=== PATIENT | female | born 1980 | race Caucasian/White ===

== ENCOUNTER 2019-11-01 19:41 | Inpatient (IN) | payer OTHER ==
[~2019-11-01] VITALS: Ht 157.5 cm; Wt 66.2 kg
[2019-11-01 19:54] VITALS: BP_SYST 157
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
--- NOTE | 2019-11-01 20:10 | NUR ---
Dr. Cabral at bedside to evaluate pt. When asked what happened to her chin, pt states "I don't want to talk about it."
--- NOTE | 2019-11-01 20:45 | NUR ---
# 20 gauge angiocath placed to RAC. Use of asceptic technique. Opsite placed over site. Blood return noted. Blood for lab drawn from site. Flushed with 10 cc of normal saline. No evidence of infiltration noted. Patient tolerated well.
--- NOTE | 2019-11-01 20:50 | NUR ---
Pt to X-ray via W/C in stable condition.
--- NOTE | 2019-11-01 20:56 | NUR ---
Pt returns from X-ray, no needs verbalized at this time.
--- NOTE | 2019-11-01 20:59 | NUR ---
Dr. Cabral at bedside.
[2019-11-01 21:00] LABS: BASOPHILS # (AUTO) 0.1 K/uL (0.0-0.2); BASOPHILS % (AUTO) 0.7 % (0.0-2.0); EOSINOPHILS # (AUTO) 0.1 K/uL (0.0-0.4); EOSINOPHILS % (AUTO) 1.1 % (0.0-4.0); HEMATOCRIT 40.8 % (36-48); HEMOGLOBIN 13.1 g/dL (12.0-16.0); LYMPHOCYTES % (AUTO) 21.8 % (20.5-51.5); MEAN CORPUSCULAR HEMOGLOBIN 31 pg (27-31); MEAN CORPUSCULAR HGB CONC 32 % (32-36); MEAN CORPUSCULAR VOLUME 95 fL (79.0-98.0); MONOCYTES # (AUTO) 0.9 K/uL (0.0-1.0); MONOCYTES % (AUTO) 9.5 % (1.7-9.3); NEUTROPHILS # (AUTO) 6.1 K/uL (1.8-7.7); NEUTROPHILS % (AUTO) 66.9 % (40.0-70.0); PLATELET COUNT (AUTO) 236 K/uL (130-430); RED BLOOD CELL COUNT(AUTO) 4.29 MIL/uL (4.2-6.2); RED CELL DISTRIBUTION WIDTH 17.2 % (9.0-15.0); WHITE BLOOD COUNT (AUTO) 9.1 K/uL (4.8-10.8)
--- NOTE | 2019-11-01 21:10 | NUR ---
HR 134, B/P 132/97 and continues to c/o left sided C/P at 04/22. Dr. Cabral made aware. Pt to receive Cardizem and Toradol.
[2019-11-01] MEDS ORDERED: DILTIAZEM HCL 25 MG/5 ML VIAL IVP ONE (21:15)
[2019-11-01] MEDS ORDERED: NACL 0.9% 1,000 ML IV ONE ×2 (21:15→22:15)
[2019-11-01] MEDS ORDERED: KETOROLAC TROMETHAMINE 30 MG VIAL IVP ONE (21:15)
[2019-11-01 21:23] LABS: ANION GAP 9 (5-15); CALCIUM 8.8 mg/dL (8.4-11.0); CHLORIDE 97 mmol/L (98-107); CREATININE 0.68 mg/dL (0.55-1.30); GLUCOSE 100 mg/dL (70-99); SODIUM SERUM 137 mmol/L (136-145); UREA NITROGEN, BLOOD 3 mg/dL (8-21)
[2019-11-01 21:25] LABS: GFR AFRICAN AMERICAN 125 mL/min (>90)
[2019-11-01] MEDS ORDERED: POTASSIUM CHLORIDE 20 MEQ TAB.PRT.SR PO ONE (21:30)
--- NOTE | 2019-11-01 21:35 | NUR ---
HR 105, B/P 151/92. Dr. Cabral notified. Cardizem to be held at this time.
[2019-11-01 21:37] LABS: ALANINE AMINOTRANSFERASE 80 U/L (12-78); ALBUMIN 3.5 g/dL (3.4-4.8); ALCOHOL, BLOOD 352 mg/dL (<10); ASPARTATE AMINOTRANSFERASE 122 U/L (10-37); FREE T4 (FREE THYROXINE) 1.2 ng/dl (0.8-1.5); THYROID STIMULATING HORMONE 2.85 uIu/mL (0.36-3.74); TOTAL BILIRUBIN 0.5 mg/dL (0.0-1.0)
[2019-11-01] MEDS ORDERED: PIPERACILLIN/TAZO 3.375 GM in NS 50 ML IV ONE (21:45)
--- NOTE | 2019-11-01 21:45 | NUR ---
Pt becomes anxious and pacing about room stating that she can't find her credit card. I was unable to find a credit card after searching the ER room, the waiting room, and admitting. Pt then states that she can't stay in the ER because people are constantly walking by and other patients are screaming. Informed pt that there are no beds available on the unit yet and reassured that she will receive good care as if she was a pt there. Pt also educated on the need for medical treatment. Pt states that she wants to leave. Dr. Cabral notified.
[2019-11-01 21:50] LABS: PROTHROMBIN TIME 10.2 SECS (9.5-12.5)
[2019-11-01] MEDS ORDERED: NS 500 ML IV ONE (22:15)
--- NOTE | 2019-11-01 22:15 | NUR ---
Pt continues to state that she doesn't want to stay in the ER and that she is going to call someone to try to get her a bed at [place]. Dr. Cabral notified.
[2019-11-01] MEDS ORDERED: PIPERACILLIN/TAZOBACTAM 3.375 GM/VIAL (ZOSYN) IV ONE (22:24)
--- NOTE | 2019-11-01 22:44 | NUR ---
Pt continues to pace about room, talking on her cell phone. She states that she hasn't made a decision yet. Dr. Cabral notified.
--- NOTE | 2019-11-01 22:50 | NUR ---
Note kwaku in EDM - 11/01/19 at 2334 by ELLIOT Pt states C/P at 12/21, offered pain medication and refused at this time. Dr. Misha durand. Instructed pt to inform RN when pain medication is needed. Pt veralizes understanding.
--- NOTE | 2019-11-01 22:50 | NUR ---
Pt informed that she must make a decision to stay or sign out AMA. Pt states that she needs to think about it.
[2019-11-01] MEDS ORDERED: MORPHINE 4 MG/ML INJ. SYRINGE IVP ONE (23:00)
--- NOTE | 2019-11-01 23:00 | NUR ---
Pt agrees to comply with medical regimen. NS boluses x 2500 mL total in progress.
--- NOTE | 2019-11-01 23:05 | NUR ---
Note kwaku in EDM - 11/01/19 at 2335 by SDEDAJ Pt c/o C/P 03/23 and requests pain medication. Morphine 4 mg given IVP. Repeat EKG performed and given to Dr. Cabral.
--- NOTE | 2019-11-01 23:10 | NUR ---
Pt medicated with Morphine 4 mg IV for C/P 04/22.
--- NOTE | 2019-11-01 23:20 | NUR ---
Pt consented for CTA. Pt to CT via W/C in stable condition. Verbalizes improvement in pain.
[2019-11-01] MEDS ORDERED: IOHEXOL 350 mgI/mL, 150 ML INFUS..BTL IV ONE (23:27)
--- NOTE | 2019-11-02 00:10 | NUR ---
Pt vomited approx 200 mL light pink tinged emesis. Dr. Cabral made aware. Pt to receive Zofran.
[2019-11-02] MEDS ORDERED: ONDANSETRON HCL 4 MG/2 ML VIAL IVP ONE ×2 (00:15→03:30)
[2019-11-02] MEDS: NACL 0.9% 1,000 ML IV SCH ×3 (00:56→19:57)
[2019-11-02] MEDS ORDERED: cefTRIAXone 1 GM in D5W 50 ML IV SCH ×2 (01:00→21:00)
--- NOTE | 2019-11-02 01:00 | NUR ---
Pt to restroom then returns to room with steady gait. Reconnected to room service waiter/waitress, VSS, NAD. No further vomiting noted. Verbalizes improvement in C/P.
--- NOTE | 2019-11-02 02:00 | NUR ---
Pt resting quietly with eyes closed, respirations even and non-labored. VSS, NAD. NS Boluses continue to infuse without difficulty to patent and secure PIV RAC with no s/s infiltration.
[2019-11-02 02:03] LABS: BILIRUBIN,URINE NEGATIVE (NEGATIVE); BLOOD, URINE NEGATIVE (NEGATIVE); CLARITY/URINE CLEAR (CLEAR); COLOR,URINE YELLOW (YELLOW); GLUCOSE,URINE TRACE (NEGATIVE); KETONES,URINE NEGATIVE (NEGATIVE); LEUKOCYTE ESTERASE ,URINE 1+ (NEGATIVE); NITRITE, URINE NEGATIVE (NEGATIVE); PH,URINE 6.5 (5.0-8.0); PROTEIN URINE NEGATIVE (NEGATIVE); UROBILINOGEN,URINE 0.2 (0.2-1.0)
[2019-11-02 02:42] LABS: BARBITURATE, URINE NEGATIVE (NEG <=200); BENZODIAZEPINE, URINE NEGATIVE (NEG <=150); CANNABINOID, URINE NEGATIVE (NEG <=50); COCAINE, URINE NEGATIVE (NEG <=150); METHAMPHETAMINES SCREEN,URINE NEGATIVE (NEG <=500); OPIATE, URINE NEGATIVE (NEG <=100); PHENCYCLIDINE SCREEN,URINE NEGATIVE (NEG <=25); UR TRICYCLIC ANTIDEPRESSANTS NEGATIVE (NEG <=300); URINE AMPHETAMINE NEGATIVE (NEG <=500); URINE METHADONE NEGATIVE (NEG <=200); URINE OXYCODONE SCREEN NEGATIVE (NEG <=100); URINE PROPOXYPHENE SCREEN NEGATIVE (NEG <=300)
[2019-11-02 02:55] LABS: BACTERIA,URINE FEW /HPF (None Seen); RBC,URINE 0-3 /HPF (0-3)
--- NOTE | 2019-11-02 03:20 | NUR ---
Pt vomits copious amount of robb colored emesis. Dr. Cabral notified and pt to receive Zofran 4 mg IVP.
[2019-11-02] MEDS ORDERED: cefTRIAXone 1 GM VIAL ONE ×2 (03:25→10:22)
[2019-11-02] MEDS ORDERED: ONDANSETRON HCL 4 MG/2 ML VIAL ONE (03:33)
--- NOTE | 2019-11-02 03:35 | NUR ---
Pt c/o anxiety. Pt medicated with Ativan 2 mg IVP per admit orders.
--- NOTE | 2019-11-02 04:00 | NUR ---
Pt resting quietly, VSS, NAD.
--- NOTE | 2019-11-02 05:06 | NUR ---
Pt up to restroom, ambulates with steady gait. Returns to room, reconnected to rn cardiac rehab. Verbalizes improvement in C/P, no needs verbalized at this time.
[2019-11-02 06:30] LABS: BASOPHILS % (AUTO) 0.3 % (0.0-2.0); EOSINOPHILS # (AUTO) 0.1 K/uL (0.0-0.4); EOSINOPHILS % (AUTO) 1.5 % (0.0-4.0); HEMOGLOBIN 11.2 g/dL (12.0-16.0); LYMPHOCYTES # (AUTO) 0.9 K/uL (1.0-5.5); LYMPHOCYTES % (AUTO) 10.1 % (20.5-51.5); MEAN CORPUSCULAR HEMOGLOBIN 31 pg (27-31); MEAN CORPUSCULAR HGB CONC 32 % (32-36); MEAN CORPUSCULAR VOLUME 96 fL (79.0-98.0); MONOCYTES # (AUTO) 0.6 K/uL (0.0-1.0); MONOCYTES % (AUTO) 6.6 % (1.7-9.3); NEUTROPHILS # (AUTO) 7.1 K/uL (1.8-7.7); NEUTROPHILS % (AUTO) 81.5 % (40.0-70.0); PLATELET COUNT (AUTO) 186 K/uL (130-430); RED BLOOD CELL COUNT(AUTO) 3.65 MIL/uL (4.2-6.2); WHITE BLOOD COUNT (AUTO) 8.8 K/uL (4.8-10.8)
[2019-11-02 06:55] LABS: CREATININE 0.51 mg/dL (0.55-1.30); POTASSIUM 3.2 mmol/L (3.5-5.1)
[2019-11-02 07:13] LABS: CALCIUM 6.9 mg/dL (8.4-11.0)
--- NOTE | 2019-11-02 07:30 | NUR ---
Pt report given to PERLA Segovia.
--- NOTE | 2019-11-02 07:30 | NUR ---
REPORT FROM LISSY DUNCAN
[2019-11-02] MEDS ORDERED: METO-540 (07:52)
--- NOTE | 2019-11-02 07:52 | NUR ---
Medication reconciliation completed with information provided by patient. Any prior medication reconciliation on file was reviewed and corrected.
[2019-11-02] MEDS ORDERED: CALCIUM CARBONATE 500 MG/ TAB.CHEW PO SCH (09:00)
[2019-11-02] MEDS ORDERED: POTASSIUM CHLORIDE 20 MEQ TAB.PRT.SR PO PRN (09:15)
[2019-11-02] MEDS ORDERED: ONDANSETRON HCL 4 MG/2 ML VIAL IVP PRN (09:15)
[2019-11-02] MEDS ORDERED: MORPHINE 2 MG/ML INJ. SYRINGE IVP PRN (09:15)
[2019-11-02] MEDS ORDERED: LORazepam 2 MG/ML VIAL IVP PRN ×2 (09:15)
[2019-11-02] MEDS ORDERED: ZOLPIDEM TARTRATE 5 MG TABLET PO PRN (09:15)
[2019-11-02] MEDS ORDERED: MAGNESIUM SULFATE 50 ML IV PRN (09:15)
[2019-11-02] MEDS ORDERED: ACETAMINOPHEN 325 MG TABLET PO PRN (09:15)
[2019-11-02] MEDS ORDERED: DOCUSATE SODIUM 100 MG CAPSULE PO PRN (09:15)
[2019-11-02] MEDS ORDERED: MUPIROCIN 2% TOPICAL OINTMENT 22 GM NS PRN (09:15)
--- NOTE | 2019-11-02 09:35 | NUR ---
ER Dr. Cross at bedside examining patient.
--- NOTE | 2019-11-02 10:10 | NUR ---
Ultrasound staff at bedside
[2019-11-02] MEDS ORDERED: chlordiazePOXIDE HCL 25 MG CAPSULE PO ONE (11:00)
[2019-11-02] MEDS ORDERED: PANTOPRAZOLE SODIUM 40 MG TAB PO ONE (11:00)
[2019-11-02] MEDS ORDERED: ENOXAPARIN SODIUM 40 MG/0.4 ML SYRINGE SUBCUT ONE (11:00)
--- NOTE | 2019-11-02 11:48 | NUR ---
Patient will be admitted to care of Dr. Cross. Admitted to Tele unit. Will go to room 109A. Belongings list completed. Complete and up to date summary report printed. SBAR report to be given at bedside with opportunity for questions.
--- NOTE | 2019-11-02 11:51 | NUR ---
Transfer to Tele via ACLS protocol. Licensed nurse present. IV present no signs or symptoms of infiltration.
--- NOTE | 2019-11-02 12:24 | NUR ---
ADMISSION NOTE Received patient from ER via gurney. Patient admitted with diagnosis of Chest Pain. Patient is awake, alert, oriented X 4. Patient oriented to hospital room, call light, toileting, pain management and safety-teach back done. Patient informed that Maranda will be her nurse and that their room number is 109-A. Personal belongings checked and Belongings List documented. Call light within reach.
[2019-11-02 12:31] VITALS: BP_SYST 148
--- NOTE | 2019-11-02 14:30 | NUR ---
RN ROUNDS; DENIES ANY CHEST PAIN. CONTINUE TO MONITOR.STABLE.
[2019-11-02] MEDS: CALCIUM CARBONATE 500 MG/ TAB.CHEW PO SCH (15:02)
[2019-11-02] MEDS: chlordiazePOXIDE HCL 25 MG CAPSULE PO SCH ×2 (15:02→21:28)
[2019-11-02 15:27] VITALS: BP_SYST 158
--- NOTE | 2019-11-02 16:45 | NUR ---
WOUND EVALUATION: Late note for 1644 secondary to patient care. Wound Consult received from Dr. Cross. Thank you, Dr. Cross, for the consult. Patient received in a Pierz Bed with a mattress, awake, alert, and oriented. Patient is unable to turn independently. Royal Score is a 19. Past Medical History: Hypertension, GERD, alcohol abuse, prior comatose state, history of CHF, left eye surgery as a child. Patient admitted with facial cellulitis. Recent Labs: WBC 8.8, RBC 3.65, hemoglobin 11.2, hematocrit 35.0, potassium 3.2, BUN 2, creatinine 0.51, GFR 143, calcium 6.9, albumin 3.5, PTT 24.1, d-dimer 1090, Ethyl Alcohol 352. Microbiology: Blood culture results 2 in progress. Urine culture results in progress. Armstrong wound culture results in progress. Intrinsic factors that delay wound healing: Blood Alcoholic Level. Extrinsic factors that delay wound healing: Decreased mobility. Wound Assessment: 1. Left Chin: Wound, present on admission. Wound bed has 100% yellow scab. No odor, no drainage. Periwound intact. Wound measures 0.5 cm x 1.0 cm. Recommend: No dressing needed. Continue to monitor site every shift. Contact wound care nurse if site opens or drains. 2. Left Oral Mucosa inner lower lip area, Buccal Region Wound, present on admission. Wound bed has 100% yellow tissue. No odor, no drainage. Periwound intact. Wound is very painful, making it difficult to eat. Wound measures 2.0 cm x 1.7 cm. Recommend: Cleanse wound with normal saline, gently wipe yellow tissue with cotton-tipped applicator. Apply Triamcinolone Acetonide paste to wound. Perform site care TIDPC, and as needed for paste dissipation. Also recommend: Encourage and assist patient as needed with repositioning every 2 hours with pillow support and off-load pressure areas with pillows for pressure re-distribution. Offload, elevate and float bilateral heels with pillows. Perform skin care and monitor skin integrity Q shift.
--- NOTE | 2019-11-02 17:00 | NUR ---
IV LEAKING: IV REMOVED,DRY GAUZE APPLIED,NO BLEEDING. IV RE SITED AT LEFT WRIST USING G#22,CONTINUE IV FLUIDS ORDERED.
[2019-11-02] MEDS: MORPHINE 2 MG/ML INJ. SYRINGE IVP PRN ×2 (18:00→22:25)
--- NOTE | 2019-11-02 18:03 | NUR ---
PAIN MEDS: C/O MID STERNAL CHEST PAIN AND DUE IV MORPHINE GIVEN PER REQUEST. NO PROBLEM.
[2019-11-02] MEDS ORDERED: DENTAL PASTE MM SCH (18:30)
[2019-11-02] MEDS ORDERED: TRIAMCINOLONE ACETONIDE 0.1% MM SCH (18:30)
--- NOTE | 2019-11-02 18:44 | NUR ---
closing notes: Patient comfortable this time. Call light with in reach. Bed locked at lowest position. Practice guidelines met through the shift.
[2019-11-02 19:00] VITALS: BP_SYST 150
--- NOTE | 2019-11-03 02:54 | NUR ---
Patient in bed. Patient requested a snack. This nurse gave the patient a sandwich, cracker and a juice. Will continue to monitor.
[2019-11-03] MEDS: NACL 0.9% 1,000 ML IV SCH (04:34)
[2019-11-03 07:25] LABS: BASOPHILS % (AUTO) 0.7 % (0.0-2.0); EOSINOPHILS # (AUTO) 0.2 K/uL (0.0-0.4); EOSINOPHILS % (AUTO) 4.7 % (0.0-4.0); HEMATOCRIT 34.8 % (36-48); HEMOGLOBIN 11.4 g/dL (12.0-16.0); LYMPHOCYTES # (AUTO) 1.1 K/uL (1.0-5.5); LYMPHOCYTES % (AUTO) 21.9 % (20.5-51.5); MEAN CORPUSCULAR HEMOGLOBIN 31 pg (27-31); MEAN CORPUSCULAR HGB CONC 33 % (32-36); MEAN CORPUSCULAR VOLUME 96 fL (79.0-98.0); MONOCYTES # (AUTO) 0.6 K/uL (0.0-1.0); MONOCYTES % (AUTO) 12.3 % (1.7-9.3); NEUTROPHILS % (AUTO) 60.4 % (40.0-70.0); PLATELET COUNT (AUTO) 177 K/uL (130-430); RED BLOOD CELL COUNT(AUTO) 3.63 MIL/uL (4.2-6.2); RED CELL DISTRIBUTION WIDTH 17.2 % (9.0-15.0); WHITE BLOOD COUNT (AUTO) 4.9 K/uL (4.8-10.8)
--- NOTE | 2019-11-03 07:30 | NUR ---
Am Rounds: Patient sleeping during rounds. Updates given by night nurse Conchis.Safety measures rendered. Bed locked at lowest position. Continue to monitor.
[2019-11-03 08:00] LABS: CALCIUM 7.4 mg/dL (8.4-11.0); CREATININE 0.55 mg/dL (0.55-1.30); POTASSIUM 3.8 mmol/L (3.5-5.1)
[2019-11-03 08:12] VITALS: BP_SYST 158
[2019-11-03] MEDS: CALCIUM CARBONATE 500 MG/ TAB.CHEW PO SCH (08:40)
[2019-11-03] MEDS: chlordiazePOXIDE HCL 25 MG CAPSULE PO SCH (08:40)
[2019-11-03] MEDS ORDERED: PANTOPRAZOLE SODIUM 40 MG TAB PO SCH (09:00)
[2019-11-03] MEDS ORDERED: THIAMINE HCL 100 MG TABLET PO SCH (09:00)
[2019-11-03] MEDS ORDERED: FOLIC ACID 1 MG TABLET PO SCH (09:00)
[2019-11-03] MEDS ORDERED: METOPROLOL SUCCINATE 25 MG TAB.SR.24H (TOPROL XL) PO SCH (09:00)
[2019-11-03] MEDS ORDERED: ENOXAPARIN SODIUM 40 MG/0.4 ML SYRINGE SUBCUT SCH (09:00)
[2019-11-03] MEDS ORDERED: LISINOPRIL 5 MG TABLET PO SCH (09:00)
[2019-11-03] MEDS ORDERED: CALC117719 PO (09:14)
[2019-11-03] MEDS ORDERED: CEPH-568 PO (09:14)
[2019-11-03] MEDS ORDERED: MAGN400T10 PO (09:14)
[2019-11-03] MEDS ORDERED: METO50TA7 PO (09:14)
--- NOTE | 2019-11-03 09:14 | NUR ---
DC ORDER: PATIENT SEEN BY DR BARCENAS WITH ORDERS DC HOME AND F/U WITH PCP WITHIN A WEEK. E-SCRIPT SENT TO [facility] PER PATIENT'S OWN PHARMACY BY MD AND WITH SEPARATE PRESCRIPTIONS OF LIBRIUM.
[2019-11-03] MEDS ORDERED: MAGNESIUM SULFATE 1 GM in NS 100 ML IV ONE (09:15)
[2019-11-03] MEDS ORDERED: THIA100T73 PO (09:17)
[2019-11-03] MEDS ORDERED: FOLI-43 PO (09:18)
--- NOTE | 2019-11-03 09:52 | NUR ---
MAGNESIUM RIDER: WITH LOW MAGNESIUM, MAGNESIUM RIDER GIVEN VIA IVPB ORDERED. NO ADVERSE REACTIONS NOTED DURING INFUSION.
[2019-11-03] MEDS ORDERED: cloNIDine HCL 0.1 MG TABLET PO ONE (10:45)
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
--- NOTE | 2019-11-03 12:00 | NUR ---
Lunch: Patient ate dinner. No acute distress.
[2019-11-03 12:24] VITALS: BP_SYST 135
[2019-11-03 13:05] VITALS: BP_SYST 135
--- NOTE | 2019-11-03 14:05 | NUR ---
D/C Patient Patient given medication reconciliation form and D/C instructions. Exit Care provided. Patient verbalized understanding. MD discussed with patient the results and treatment provided. Ambulatory with steady gait for discharge to home. Patient in stable condition, ID band removed. IV catheter removed, intact and dressing applied, no active bleeding. Rx of Librium given. Patient educated on pain management. All belongings sent with patient.
== END 2019-11-03 14:05 | disposition home or self-care (01) | DRG 603 ==
LOC: SED 19:41 → STU 23:57
PROVIDERS: ADMIT General Practice; ATTEND General Practice
DX: L03.211 Cellulitis of face (principal); N39.0 Urinary tract infection, site not specified; K21.9 Gastro-esophageal reflux disease without esophagitis; E83.42 Hypomagnesemia; E83.51 Hypocalcemia; E87.6 Hypokalemia; F10.229 Alcohol dependence with intoxication, unspecified; I10 Essential (primary) hypertension; S01.81XA Laceration without foreign body of other part of head, initial encounter; J44.9 Chronic obstructive pulmonary disease, unspecified; S01.501A Unspecified open wound of lip, initial encounter; W18.39XA Other fall on same level, initial encounter; K13.0 Diseases of lips; S50.812A Abrasion of left forearm, initial encounter; S50.811A Abrasion of right forearm, initial encounter; Y93.89 Activity, other specified; Y92.89 Other specified places as the place of occurrence of the external cause; Z79.899 Other long term (current) drug therapy; Y99.8 Other external cause status
CPT/HCPCS: 36415; 71046-TC; 71275; 80048; 80053; 80307; 81000-TC; 83036; 83605; 83735-TC; 83880; 84439; 84443-TC; 84484; 85025; 85379; 85610-TC; 85730-TC; 87040-TC; 87070-TC; 87086; 87186-TC; 93005; 93306; 93970; 96361; 96365; 96375; 96376; 99285; G0378; G0482; J0696; J1650; J1885; J2060; J2270; J2405; J2543; J3475; J3490; J7030; J7040; J7060; Q9967

== ENCOUNTER 2019-11-11 13:08 | Emergency (ER) | payer OTHER ==
[~2019-11-11] VITALS: Ht 157.5 cm; Wt 66.2 kg
[~2019-11-11 13:08] MED LIST: CALC117719 PO; CEPH-568 PO; FOLI-43 PO; MAGN400T10 PO; METO-540; METO50TA7 PO; THIA100T73 PO
[2019-11-11 13:26] VITALS: BP_SYST 161
--- NOTE | 2019-11-11 13:30 | NUR ---
PATIENT PRESENTS TO THE ER WITH HX OF MID CHEST PAIN/PRESSURE WITH RADIATION TO LEFT ARM FOR 6 HOURS; NO TRAUMA, NO OTHER REMARKABLE S/S; PATIENT DOES ADMIT TO ETOH USAGE TODAY; PATIENT TO ER #2 WITH STAT EKG, GROUND CREW SUPERVISOR AND SAO2
[2019-11-11] MEDS ORDERED: NACL 0.9% 1,000 ML IV ONE (13:45)
--- NOTE | 2019-11-11 14:00 | NUR ---
Note kwaku in EDM - 11/11/19 at 1947 by CHANTE patient bib cousin with cc of chest pain. stated she doesn't want to be in the hospital, very anxious wants to talk with MD. vital sign stable, afebrile, able to walk without help. refusing medication ordered.
[2019-11-11] MEDS ORDERED: KETOROLAC TROMETHAMINE 30 MG VIAL IVP ONE (14:30)
[2019-11-11] MEDS ORDERED: MAG HYDROX/AL HYDROX/SIMETH 30 ML, DICYCLOMINE HCL 20 MG, LIDOCAINE VISCOUS 2% 15ML (PO... PO ONE ×3 (14:30)
--- NOTE | 2019-11-11 14:49 | NUR ---
ER Dr. Washington at bedside examining patient.
--- NOTE | 2019-11-11 14:50 | NUR ---
patient bib cousin with cc of chest pain. stated she doesn't want to be in the hospital, very anxious wants to talk with MD. vital sign stable, afebrile, able to walk without help. refusing medication ordered.
[2019-11-11] MEDS ORDERED: LORazepam 2 MG/ML VIAL IVP ONE (15:00)
--- NOTE | 2019-11-11 15:10 | NUR ---
Patient is refusing all medications at this time and is demanding to leave.
--- NOTE | 2019-11-11 15:26 | NUR ---
Patient given written and verbal discharge instructions and verbalizes understanding. ER MD discussed with patient the results and treatment provided. Patient in stable condition. ID arm band removed. IV catheter removed intact and dressing applied, no active bleeding. Rx of Ativan given. Patient educated on pain management and to follow up with PMD. Pain Scale 0/10 . Opportunity for questions provided and answered. Medication side effect fact sheet provided.
[2019-11-11 15:29] VITALS: BP_SYST 142
== END 2019-11-11 15:26 | disposition home or self-care (01) ==
LOC: SED 13:08
DX: R00.2 Palpitations (principal); F10.229 Alcohol dependence with intoxication, unspecified; I11.0 Hypertensive heart disease with heart failure; I50.9 Heart failure, unspecified; J44.9 Chronic obstructive pulmonary disease, unspecified; Z79.899 Other long term (current) drug therapy; Y90.9 Presence of alcohol in blood, level not specified
CPT/HCPCS: 71045; 93005; 99283; J1885; J2001; J2060; J7030

== ENCOUNTER 2019-11-16 03:40 | Emergency (ER) | payer OTHER ==
[~2019-11-16] VITALS: Ht 157.5 cm; Wt 66.2 kg
[~2019-11-16 03:40] MED LIST changes: -METO-540
[2019-11-16 03:45] VITALS: BP_SYST 148
--- NOTE | 2019-11-16 03:45 | NUR ---
Placed in room 6 . Placed on roll forger, blood pressure machine and pulse oximeter. To gown for exam. Side rails up. Report given to Amy DUNCAN.
--- NOTE | 2019-11-16 03:47 | NUR ---
ER at bedside examining patient.
[2019-11-16] MEDS ORDERED: NITROGLYCERIN 1 INCH (GM) OINT. TP ONE (03:49)
[2019-11-16] MEDS ORDERED: MORPHINE 4 MG/ML INJ. SYRINGE IVP ONE (03:49)
--- NOTE | 2019-11-16 03:50 | NUR ---
Pt BIB EMS with c/o chest pain. Pt A&Ox4. Pt ETOH. Pt states sharp chest pain that radiates to Left elbow began 3 days ago. Pt states she was just discharged from [facility] ER after they did an EKG. Pt denies SOB, nausea, vomiting. Bilateral lung sounds clear with no use of accessory muscles. Will continue to monitor.
[2019-11-16] MEDS ORDERED: ASPIRIN 325 MG TABLET PO ONE (04:00)
--- NOTE | 2019-11-16 04:00 | NUR ---
PERLA Andre at bedside drawing labs.
--- NOTE | 2019-11-16 04:00 | NUR ---
Per MD Herndon, no placement of IV.
[2019-11-16] MEDS ORDERED: FAMOTIDINE PF 20 MG/2 ML VIAL IVP ONE (04:15)
--- NOTE | 2019-11-16 04:16 | NUR ---
radiology at bedside.
[2019-11-16] MEDS ORDERED: FAMOTIDINE 20 MG TABLET PO ONE (04:30)
[2019-11-16 04:43] LABS: BASOPHILS % (AUTO) 0.6 % (0.0-2.0); EOSINOPHILS % (AUTO) 0.1 % (0.0-4.0); HEMATOCRIT 39.3 % (36-48); HEMOGLOBIN 12.9 g/dL (12.0-16.0); LYMPHOCYTES % (AUTO) 16.9 % (20.5-51.5); MEAN CORPUSCULAR HEMOGLOBIN 31 pg (27-31); MEAN CORPUSCULAR HGB CONC 33 % (32-36); MEAN CORPUSCULAR VOLUME 94 fL (79.0-98.0); MONOCYTES # (AUTO) 0.4 K/uL (0.0-1.0); MONOCYTES % (AUTO) 7.2 % (1.7-9.3); NEUTROPHILS # (AUTO) 4.4 K/uL (1.8-7.7); NEUTROPHILS % (AUTO) 75.2 % (40.0-70.0); PLATELET COUNT (AUTO) 165 K/uL (130-430); RED BLOOD CELL COUNT(AUTO) 4.19 MIL/uL (4.2-6.2); RED CELL DISTRIBUTION WIDTH 17.4 % (9.0-15.0); WHITE BLOOD COUNT (AUTO) 5.8 K/uL (4.8-10.8)
[2019-11-16 04:53] LABS: PROTHROMBIN TIME 9.9 SECS (9.5-12.5)
[2019-11-16 04:58] LABS: ALBUMIN 3.5 g/dL (3.4-4.8); CALCIUM 8.6 mg/dL (8.4-11.0); CREATININE 0.62 mg/dL (0.55-1.30); TOTAL BILIRUBIN 0.5 mg/dL (0.0-1.0)
[2019-11-16 05:00] LABS: POTASSIUM 2.9 mmol/L (3.5-5.1)
[2019-11-16] MEDS ORDERED: POTASSIUM CHLORIDE 20 MEQ TAB.PRT.SR PO ONE (05:30)
--- NOTE | 2019-11-16 05:40 | NUR ---
Pt medicated with 20 mEq of potassium PO. Pt tolerated well. Will continue to monitor.
--- NOTE | 2019-11-16 06:44 | NUR ---
Pt sleeping in bed with no complaints. Will continue to monitor.
--- NOTE | 2019-11-16 07:06 | NUR ---
Report given to PERLA Segovia.
[2019-11-16 07:40] VITALS: BP_SYST 139
--- NOTE | 2019-11-16 07:40 | NUR ---
Patient given written and verbal discharge instructions and verbalizes understanding. ER MD discussed with patient the results and treatment provided. Patient in stable condition. ID arm band removed. Rx of pepcid given. Patient educated on pain management and to follow up with PMD. Pain Scale 0/10 . Opportunity for questions provided and answered. Medication side effect fact sheet provided.
== END 2019-11-16 07:40 | disposition home or self-care (01) ==
LOC: SED 03:40
DX: K21.9 Gastro-esophageal reflux disease without esophagitis (principal); F10.20 Alcohol dependence, uncomplicated; J44.9 Chronic obstructive pulmonary disease, unspecified; I10 Essential (primary) hypertension; Z86.73 Personal history of transient ischemic attack (TIA), and cerebral infarction without residual deficits; Z79.899 Other long term (current) drug therapy; Y90.9 Presence of alcohol in blood, level not specified
CPT/HCPCS: 36415; 71045; 80053; 83880; 84484; 85025; 85379; 85610-TC; 85730-TC; 99284

== ENCOUNTER 2021-08-11 18:32 | Emergency (ER) | payer BC, MEDICAID ==
[~2021-08-11] VITALS: Ht 157.5 cm; Wt 63.5 kg
--- NOTE | 2021-08-11 18:37 | NUR ---
Placed in room 6 . Placed on monitoring specialist, blood pressure machine and pulse oximeter. To gown for exam. Side rails up. Report given to PERLA DOVER.
--- NOTE | 2021-08-11 19:19 | NUR ---
MD Owen and Carroll in to see patient.
[2021-08-11] MEDS ORDERED: LORazepam 1 MG TABLET PO ONE (19:30)
--- NOTE | 2021-08-11 19:45 | NUR ---
Patient given written and verbal discharge instructions and verbalizes understanding. ER MD discussed with patient the results and treatment provided. Patient in stable condition. ID arm band removed. IV catheter removed intact and dressing applied, no active bleeding. Patient educated on pain management and to follow up with PMD. Opportunity for questions provided and answered. Medication side effect fact sheet provided.
== END 2021-08-11 19:45 | disposition left against medical advice (07) ==
LOC: SED 18:32
DX: R00.0 Tachycardia, unspecified (principal); F41.9 Anxiety disorder, unspecified; F10.10 Alcohol abuse, uncomplicated; I11.0 Hypertensive heart disease with heart failure; I50.9 Heart failure, unspecified; J45.909 Unspecified asthma, uncomplicated; Z79.899 Other long term (current) drug therapy
CPT/HCPCS: 93005; 99283

== ENCOUNTER 2021-08-17 21:30 | Emergency (ER) | payer BC, MEDICAID ==
[~2021-08-17] VITALS: Ht 157.5 cm; Wt 63.5 kg
[2021-08-17 21:35] VITALS: BP_SYST 138
--- NOTE | 2021-08-17 21:35 | NUR ---
[facility] and patient appears in no acute distress at this time. Accompanied by ambulance emt, awaiting available bed, and MD notified of need for MSE.
--- NOTE | 2021-08-17 22:20 | NUR ---
pt walked out to the ambulance door.
== END 2021-08-17 22:20 | disposition left against medical advice (07) ==
LOC: SED 21:30
DX: R10.31 Right lower quadrant pain (principal); Z53.21 Procedure and treatment not carried out due to patient leaving prior to being seen by health care provider

== ENCOUNTER 2021-08-18 00:31 | Emergency (ER) | payer BC, MEDICAID ==
[~2021-08-18] VITALS: Ht 157.5 cm; Wt 63.5 kg
[2021-08-18 00:35] VITALS: BP_SYST 140
--- NOTE | 2021-08-18 00:35 | NUR ---
Patient triaged and placed in waiting room. VSS and patient appears in no acute distress at this time. awaiting available bed, and MD notified of need for MSE.
[2021-08-18 01:26] LABS: BARBITURATE, URINE NEGATIVE (NEG <=200); BENZODIAZEPINE, URINE POSITIVE (NEG <=150); CANNABINOID, URINE POSITIVE (NEG <=50); COCAINE, URINE NEGATIVE (NEG <=150); METHAMPHETAMINES SCREEN,URINE NEGATIVE (NEG <=500); OPIATE, URINE NEGATIVE (NEG <=100); PHENCYCLIDINE SCREEN,URINE NEGATIVE (NEG <=25); UR TRICYCLIC ANTIDEPRESSANTS NEGATIVE (NEG <=300); URINE AMPHETAMINE NEGATIVE (NEG <=500); URINE METHADONE NEGATIVE (NEG <=200); URINE OXYCODONE SCREEN NEGATIVE (NEG <=100); URINE PROPOXYPHENE SCREEN NEGATIVE (NEG <=300)
--- NOTE | 2021-08-18 01:55 | NUR ---
Placed in room 3 . Placed on monitor technician, blood pressure machine and pulse oximeter. To gown for exam. Side rails up. Report given to RA DUNCAN.
--- NOTE | 2021-08-18 02:00 | NUR ---
Pt states on Aug 14, 2021 she had a coronary angiogram at [facility] since than, 24 hours after the procedure she has had right upper chest dull pain, but has resolved. In the last 24 hours she states she is having bilateral lower extremity swelling. She also states she has a history of anxiety.
[2021-08-18 02:02] LABS: BASOPHILS # (AUTO) 0.1 K/uL (0.0-0.2); BASOPHILS % (AUTO) 0.7 % (0.0-2.0); EOSINOPHILS # (AUTO) 0.5 K/uL (0.0-0.4); EOSINOPHILS % (AUTO) 6.3 % (0.0-4.0); HEMATOCRIT 39.6 % (36-48); HEMOGLOBIN 12.9 g/dL (12.0-16.0); LYMPHOCYTES # (AUTO) 2.4 K/uL (1.0-5.5); LYMPHOCYTES % (AUTO) 28.7 % (20.5-51.5); MEAN CORPUSCULAR HEMOGLOBIN 31 pg (27-31); MEAN CORPUSCULAR HGB CONC 33 % (32-36); MEAN CORPUSCULAR VOLUME 94 fL (79.0-98.0); MONOCYTES # (AUTO) 0.6 K/uL (0.0-1.0); MONOCYTES % (AUTO) 7.2 % (1.7-9.3); NEUTROPHILS # (AUTO) 4.8 K/uL (1.8-7.7); NEUTROPHILS % (AUTO) 57.1 % (40.0-70.0); PLATELET COUNT (AUTO) 303 K/uL (130-430); RED BLOOD CELL COUNT(AUTO) 4.21 MIL/uL (4.2-6.2); RED CELL DISTRIBUTION WIDTH 15.7 % (9.0-15.0); WHITE BLOOD COUNT (AUTO) 8.4 K/uL (4.8-10.8)
[2021-08-18 02:09] LABS: CALCIUM 9.7 mg/dL (8.4-11.0); CREATININE 0.52 mg/dL (0.55-1.30); POTASSIUM 3.8 mmol/L (3.5-5.1)
[2021-08-18 02:15] LABS: TOTAL BILIRUBIN 0.2 mg/dL (0.0-1.0)
--- NOTE | 2021-08-18 02:45 | NUR ---
ER Dr. Kerr at bedside examining patient.
[2021-08-18] MEDS ORDERED: LORazepam 1 MG TABLET PO ONE (04:00)
--- NOTE | 2021-08-18 04:45 | NUR ---
Pt sleeping quietly.
--- NOTE | 2021-08-18 05:13 | NUR ---
Monitoring O2 sat for [address] Kerr.
--- NOTE | 2021-08-18 05:30 | NUR ---
Pt's O2 sat for last 15 minutes is between 95-96% on room air.
[2021-08-18 05:50] VITALS: BP_SYST 114
--- NOTE | 2021-08-18 05:50 | NUR ---
Patient given written and verbal discharge instructions and verbalizes understanding. ER MD discussed with patient the results and treatment provided. Patient in stable condition. ID arm band removed. Patient educated on pain management and to follow up with PMD. Pain Scale 0/10. Opportunity for questions provided and answered. Medication side effect fact sheet provided.
== END 2021-08-18 05:50 | disposition home or self-care (01) ==
LOC: SED 00:31
DX: R07.89 Other chest pain (principal); I10 Essential (primary) hypertension; J45.909 Unspecified asthma, uncomplicated; Z79.899 Other long term (current) drug therapy
CPT/HCPCS: 36415; 71045; 80053; 80307; 84484; 85025; 93005; 99285; G0482